=== PATIENT | female | born 1930 | race Caucasian/White ===

== ENCOUNTER 2016-07-04 11:40 | Outpatient (CLI) | payer MEDICARE, OTHER | END 2016-07-04 11:41 | disposition home or self-care (01) | DX: E03.9 Hypothyroidism, unspecified (principal) ==

== ENCOUNTER 2016-08-18 12:19 | Outpatient (CLI) | payer MEDICARE, OTHER | END 2016-08-18 23:59 | DX: E03.9 Hypothyroidism, unspecified (principal) ==